=== PATIENT | female | born 1970 | race Hispanic/Latino ===

== ENCOUNTER 2022-10-28 22:37 | Inpatient (IN) | payer BC, SELFPAY ==
[~2022-10-28 22:37] MED LIST: Iopamidol-370 76% 500 ML 1 ML ONE
[2022-10-28] MEDS ORDERED: Ondansetron PF 4 MG/2 ML Vial ONE (23:07)
[2022-10-28] MEDS ORDERED: Morphine 4 MG/ML VIAL ONE (23:07)
[2022-10-28 23:38] LABS: #Basophils 0.1 thou/uL (0.0-0.2); #Eosinphils 0.1 thou/uL (0.0-0.7); #Lymphocytes 2.6 thou/uL (1.20-3.40); #Monocytes 0.7 thou/uL (0.11-0.59); #Neutrophils 5.1 thou/uL (1.40-6.50); %Basophils 0.9 % (0.0-1.0); %Eosinophils 1.5 % (0.0-10.0); %Neutrophils 59.7 % (42.0-75.0); Hemoglobin 12.1 g/dL (12.0-16.0); Mean Corpuscular HGB CONC 32.1 g/dL (32.0-36.0); Mean Corpuscular Hemoglobin 26.1 pg (27.0-31.0); Mean Corpuscular Volume 81.3 fl (78.0-98.0); Platelet Count 282 10x3/uL (130-400); RBC Distribution Width 16.9 % (11.5-14.5); Red Blood Cell (RBC) Count 4.65 mill/uL (4.20-5.40); White Blood Cell (WBC) Count 8.6 10x3/uL (4.8-10.8)
[2022-10-28 23:58] LABS: ALT (SGPT) 16 U/L (8-55); AST (SGOT) 19 U/L (5-34); Albumin 3.9 g/dL (3.5-5.0); Alkaline Phosphatase 138 U/L (40-110); Anion Gap 13 mmol/L (10-20); BUN (Urea Nitrogen) 16 mg/dL (9.8-20.1); Bilirubin, Total 0.2 mg/dL (0.2-1.2); CK (CPK) 104 U/L (29-168); Calc. Creatinine Clearance 0 mL/min (70-130); Calcium 9.1 mg/dL (7.8-10.44); Carbon Dioxide 28 mmol/L (22-29); Chloride 104 mmol/L (98-107); Estimated GFR 105; Globulin 2.9 g/dL (2.4-3.5); Glucose 123 mg/dL (70-105); Potassium 3.5 mmol/L (3.5-5.1); Protein, Total 6.8 g/dL (6.0-8.3); Sodium 141 mmol/L (136-145)
[2022-10-29 00:23] LABS: Bacteria/HPF 2+ HPF (None Seen); Bilirubin Negative (Negative); Blood, Urine Negative (Negative); Clarity Clear (Clear); Glucose, Urine (Dipstick) Normal (Negative); Ketone, Urine Negative (Negative); Leukocyte 500 Leu/uL (Negative); Nitrite Negative (Negative); Protein, Urine (Dipstick) Negative (Neg-Trace); RBC/HPF 0-3 HPF (0-3); Specific Gravity, Urine 1.015 (1.002-1.036); Urobilinogen Normal mg/dL (Less than 2); WBC/HPF 21-50 HPF (0-3); pH, Urine 7.5 (5.0-9.0)
[2022-10-29] MEDS ORDERED: cefTRIAXone\\ROCEPHIN 1 GM VIAL ONE (00:32)
[2022-10-29] MEDS ORDERED: Acetaminophen 325 MG TAB PO PRN (01:40)
[2022-10-29] MEDS ORDERED: Ondansetron PF 4 MG/2 ML Vial IVP PRN (01:40)
[2022-10-29] MEDS ORDERED: HYDROcodone/Acetaminophen 7.5/325 mg Tablet PO PRN (02:48)
[2022-10-29 03:08] VITALS: BMI 35.0
[2022-10-29 05:14] LABS: SARS-CoV-2 NAA Rapid Test Not Detected (NotDetected)
[2022-10-29] MEDS: Levothyroxine Sodium 50 MCG TAB PO SCH (05:57)
[2022-10-29 06:20] LABS: #Eosinphils 0.1 thou/uL (0.0-0.7); #Lymphocytes 2.9 thou/uL (1.20-3.40); #Monocytes 0.7 thou/uL (0.11-0.59); #Neutrophils 5.1 thou/uL (1.40-6.50); %Basophils 0.4 % (0.0-1.0); %Eosinophils 1.3 % (0.0-10.0); %Lymphocytes 32.8 % (21.0-51.0); %Monocytes 7.6 % (0.0-10.0); Hemoglobin 12.3 g/dL (12.0-16.0); Mean Corpuscular HGB CONC 31.3 g/dL (32.0-36.0); Mean Corpuscular Hemoglobin 25.7 pg (27.0-31.0); Mean Corpuscular Volume 82.1 fl (78.0-98.0); Mean Platelet Volume 8.6 fL (7.4-10.4); Platelet Count 306 10x3/uL (130-400); White Blood Cell (WBC) Count 8.8 10x3/uL (4.8-10.8)
[2022-10-29 06:40] LABS: Anion Gap 10 mmol/L (10-20); BUN (Urea Nitrogen) 12 mg/dL (9.8-20.1); Calc. Creatinine Clearance 154 mL/min (70-130); Calcium 8.6 mg/dL (7.8-10.44); Carbon Dioxide 27 mmol/L (22-29); Chloride 105 mmol/L (98-107); Estimated GFR 107; Glucose 96 mg/dL (70-105); Potassium 3.9 mmol/L (3.5-5.1); Sodium 138 mmol/L (136-145)
[2022-10-29] MEDS: HYDROcodone/Acetaminophen 5/325 mg Tablet PO PRN ×2 (08:38→20:17)
[2022-10-29] MEDS ORDERED: FLU VACC QS2022-23(6MOS UP)/PF 60 MCG/0.5 ML SYRINGE IM ONE (09:00)
[2022-10-29] MEDS ORDERED: Polyethylene Glycol 3350 17 GM Packet PO PRN (17:31)
[2022-10-29] MEDS: Senokot S 8.6-50 MG TAB PO SCH (20:13)
[2022-10-29] MEDS: Apixaban 5 MG TAB PO SCH (20:13)
[2022-10-30] MEDS ORDERED: cefTRIAXone\\ROCEPHIN 1 GM in Sodium Chloride 0.9% 100 ML IVPB SCH (01:00)
[2022-10-30] MEDS: Levothyroxine Sodium 50 MCG TAB PO SCH (05:12)
[2022-10-30 06:27] LABS: #Basophils 0.1 thou/uL (0.0-0.2); #Lymphocytes 2.3 thou/uL (1.20-3.40); #Monocytes 1.1 thou/uL (0.11-0.59); %Basophils 0.5 % (0.0-1.0); %Eosinophils 0.4 % (0.0-10.0); %Lymphocytes 18.2 % (21.0-51.0); %Monocytes 8.7 % (0.0-10.0); %Neutrophils 72.2 % (42.0-75.0); Hemoglobin 13.2 g/dL (12.0-16.0); Mean Corpuscular HGB CONC 31.5 g/dL (32.0-36.0); Mean Corpuscular Hemoglobin 25.5 pg (27.0-31.0); Mean Corpuscular Volume 81.1 fl (78.0-98.0); Mean Platelet Volume 9.1 fL (7.4-10.4); Platelet Count 297 10x3/uL (130-400); RBC Distribution Width 16.7 % (11.5-14.5); Red Blood Cell (RBC) Count 5.15 mill/uL (4.20-5.40); White Blood Cell (WBC) Count 12.5 10x3/uL (4.8-10.8)
[2022-10-30 06:48] LABS: Anion Gap 13 mmol/L (10-20); BUN (Urea Nitrogen) 11 mg/dL (9.8-20.1); Calc. Creatinine Clearance 157 mL/min (70-130); Calcium 9.3 mg/dL (7.8-10.44); Carbon Dioxide 27 mmol/L (22-29); Chloride 97 mmol/L (98-107); Estimated GFR 107; Glucose 108 mg/dL (70-105); Potassium 3.6 mmol/L (3.5-5.1); Sodium 133 mmol/L (136-145)
[2022-10-30] MEDS ORDERED: Iopamidol-370 76% 500 ML 1 ML ONE (08:58)
[2022-10-30] MEDS: Apixaban 5 MG TAB PO SCH ×2 (09:05→20:41)
[2022-10-30] MEDS: Senokot S 8.6-50 MG TAB PO SCH ×2 (09:05→20:41)
[2022-10-30] MEDS: HYDROcodone/Acetaminophen 5/325 mg Tablet PO PRN ×2 (09:08→18:53)
[2022-10-30] MEDS ORDERED: cefTRIAXone\\ROCEPHIN 2 GM in Sodium Chloride 0.9% 100 ML IVPB SCH (18:00)
[2022-10-30] MEDS: Saccharomyces boulardii 250 MG CAP PO SCH (20:41)
[2022-10-31] MEDS: Levothyroxine Sodium 50 MCG TAB PO SCH (04:14)
[2022-10-31] MEDS: HYDROcodone/Acetaminophen 5/325 mg Tablet PO PRN (04:14)
[2022-10-31 06:12] LABS: #Basophils 0.1 thou/uL (0.0-0.2); #Eosinphils 0.1 thou/uL (0.0-0.7); #Lymphocytes 2.4 thou/uL (1.20-3.40); #Monocytes 1.1 thou/uL (0.11-0.59); #Neutrophils 7.8 thou/uL (1.40-6.50); %Basophils 0.4 % (0.0-1.0); %Eosinophils 0.5 % (0.0-10.0); %Lymphocytes 20.9 % (21.0-51.0); %Monocytes 9.9 % (0.0-10.0); %Neutrophils 68.3 % (42.0-75.0); Hemoglobin 12.6 g/dL (12.0-16.0); Mean Corpuscular HGB CONC 31.3 g/dL (32.0-36.0); Mean Corpuscular Hemoglobin 25.6 pg (27.0-31.0); Mean Corpuscular Volume 81.9 fl (78.0-98.0); Mean Platelet Volume 8.7 fL (7.4-10.4); Platelet Count 288 10x3/uL (130-400); RBC Distribution Width 16.6 % (11.5-14.5); White Blood Cell (WBC) Count 11.5 10x3/uL (4.8-10.8)
[2022-10-31 06:14] LABS: Anion Gap 13 mmol/L (10-20); BUN (Urea Nitrogen) 12 mg/dL (9.8-20.1); Calc. Creatinine Clearance 154 mL/min (70-130); Calcium 9.1 mg/dL (7.8-10.44); Carbon Dioxide 25 mmol/L (22-29); Chloride 100 mmol/L (98-107); Estimated GFR 107; Glucose 106 mg/dL (70-105); Potassium 3.8 mmol/L (3.5-5.1); Sodium 134 mmol/L (136-145)
[2022-10-31] MEDS: Senokot S 8.6-50 MG TAB PO SCH ×2 (09:10→20:16)
[2022-10-31] MEDS: Apixaban 5 MG TAB PO SCH ×2 (09:10→20:16)
[2022-10-31] MEDS: Saccharomyces boulardii 250 MG CAP PO SCH (20:16)
[2022-11-01] MEDS: Levothyroxine Sodium 50 MCG TAB PO SCH (05:31)
[2022-11-01 06:56] LABS: #Eosinphils 0.1 thou/uL (0.0-0.7); #Lymphocytes 2.6 thou/uL (1.20-3.40); %Basophils 0.3 % (0.0-1.0); %Eosinophils 0.9 % (0.0-10.0); %Lymphocytes 26.7 % (21.0-51.0); %Monocytes 10.5 % (0.0-10.0); %Neutrophils 61.6 % (42.0-75.0); Hemoglobin 12.5 g/dL (12.0-16.0); Mean Corpuscular HGB CONC 31.9 g/dL (32.0-36.0); Mean Corpuscular Hemoglobin 26.1 pg (27.0-31.0); Mean Corpuscular Volume 81.9 fl (78.0-98.0); Mean Platelet Volume 8.9 fL (7.4-10.4); Platelet Count 276 10x3/uL (130-400); RBC Distribution Width 16.6 % (11.5-14.5); Red Blood Cell (RBC) Count 4.78 mill/uL (4.20-5.40); White Blood Cell (WBC) Count 9.7 10x3/uL (4.8-10.8)
[2022-11-01 07:13] LABS: Anion Gap 14 mmol/L (10-20); BUN (Urea Nitrogen) 12 mg/dL (9.8-20.1); CRP (Inflammatory) 15.58 mg/dL (= or < 0.5); Calc. Creatinine Clearance 162 mL/min (70-130); Calcium 9.1 mg/dL (7.8-10.44); Carbon Dioxide 25 mmol/L (22-29); Chloride 100 mmol/L (98-107); Estimated GFR 108; Glucose 96 mg/dL (70-105); Magnesium 2.1 mg/dL (1.6-2.6); Potassium 3.7 mmol/L (3.5-5.1); Sodium 135 mmol/L (136-145)
[2022-11-01] MEDS: Apixaban 5 MG TAB PO SCH (08:30)
[2022-11-01] MEDS: Senokot S 8.6-50 MG TAB PO SCH (08:30)
[2022-11-01 11:57] VITALS: TEMP 97.9
[2022-11-01 16:00] VITALS: BP 119/83
== END 2022-11-01 17:19 | disposition home or self-care (01) | DRG 872 ==
LOC: ERS 22:37 → SURG A 10-29 01:40
PROVIDERS: ADMIT Internal Medicine; ATTEND Internal Medicine
DX: A41.9 Sepsis, unspecified organism (principal); N12 Tubulo-interstitial nephritis, not specified as acute or chronic; N28.0 Ischemia and infarction of kidney; E87.1 Hypo-osmolality and hyponatremia; Z20.822 Contact with and (suspected) exposure to COVID-19; Z23 Encounter for immunization; I48.91 Unspecified atrial fibrillation; E03.9 Hypothyroidism, unspecified; I10 Essential (primary) hypertension; E66.9 Obesity, unspecified; Z68.35 Body mass index [BMI] 35.0-35.9, adult; Z79.899 Other long term (current) drug therapy; Z79.01 Long term (current) use of anticoagulants; Z79.890 Hormone replacement therapy
CPT/HCPCS: 36415; 74174; 74177; 80048; 80053; 81003; 81015; 82550; 83690; 83735; 84484; 85025; 86140; 87086; 90471; 90686; 93005; 96365; 96375; G0008; J0696; J1650; J1956; J2270; J2405; J3490; Q9967; U0002

== ENCOUNTER 2024-02-20 11:42 | Emergency (ER) | payer BC ==
[2024-02-20] MEDS ORDERED: predniSONE 20 MG TAB ONE (13:29)
[2024-02-20] MEDS ORDERED: Acetaminophen 500 MG TAB ONE (13:29)
== END 2024-02-20 13:39 | disposition home or self-care (01) ==
LOC: ERS 11:42
DX: M25.562 Pain in left knee (principal); I48.91 Unspecified atrial fibrillation; I10 Essential (primary) hypertension; E03.9 Hypothyroidism, unspecified; Z79.01 Long term (current) use of anticoagulants; Z79.899 Other long term (current) drug therapy
CPT/HCPCS: J7512

== ENCOUNTER 2024-02-28 09:53 | Emergency (ER) | payer BC | END 2024-02-28 15:25 | disposition home or self-care (01) | LOC: ERS 09:53 | DX: R10.11 Right upper quadrant pain (principal); R11.0 Nausea; E03.9 Hypothyroidism, unspecified; I48.91 Unspecified atrial fibrillation; I10 Essential (primary) hypertension; Z79.01 Long term (current) use of anticoagulants; Z79.890 Hormone replacement therapy; Z79.899 Other long term (current) drug therapy | CPT/HCPCS: 74176; 76705; 80053; 81001; 83690; 85025; 96372; J2270; J2405 ==

== ENCOUNTER 2024-06-28 09:12 | Emergency (ER) | payer BC ==
[2024-06-28] MEDS ORDERED: Ketorolac Tromethamine 30 MG (1 mL) VIAL ONE (10:09)
[2024-06-28 10:13] LABS: #Basophils 0.03 10x3/uL (0.0-0.2); %Basophils 0.4 % (0.0-1.0); %Eosinophils 1.3 % (0.0-10.0); %Lymphocytes 36.4 % (21.0-51.0); %Monocytes 7.1 % (0.0-10.0); %Neutrophils 54.5 % (42.0-75.0); Hematocrit 41.2 % (36.0-47.0); Hemoglobin 13.4 g/dL (12.0-16.0); Mean Corpuscular HGB CONC 32.5 g/dL (32.0-36.0); Mean Corpuscular Hemoglobin 28.3 pg (27.0-31.0); Mean Corpuscular Volume 86.9 fL (78.0-98.0); Mean Platelet Volume 10.3 fL (7.4-10.4); Platelet Count 307 10x3/uL (130-400); RBC Distribution Width 12.5 % (11.5-14.5); Red Blood Cell (RBC) Count 4.74 mill/uL (4.20-5.40)
[2024-06-28 10:33] LABS: ALT (SGPT) 13 U/L (8-55); AST (SGOT) 16 U/L (5-34); Albumin 3.6 g/dL (3.5-5.0); Alkaline Phosphatase 139 U/L (40-110); Anion Gap 14 mmol/L (10-20); BUN (Urea Nitrogen) 16 mg/dL (9.8-20.1); Bilirubin, Total 0.4 mg/dL (0.2-1.2); Calc. Creatinine Clearance 0 mL/min (70-130); Carbon Dioxide 25 mmol/L (22-29); Chloride 104 mmol/L (98-107); Estimated GFR 104; Globulin 3.4 g/dL (2.4-3.5); Glucose 117 mg/dL (70-105); Lipase 23 U/L (8-78); Potassium 3.8 mmol/L (3.5-5.1); Sodium 139 mmol/L (136-145)
[2024-06-28 10:38] LABS: Troponin I 0.013 ng/mL (< 0.028)
== END 2024-06-28 13:00 | disposition home or self-care (01) ==
LOC: ERS 09:12
DX: R07.89 Other chest pain (principal); I10 Essential (primary) hypertension; E03.9 Hypothyroidism, unspecified; I48.91 Unspecified atrial fibrillation; Z79.01 Long term (current) use of anticoagulants; Z55.6 Problems related to health literacy
CPT/HCPCS: 36415; 71045; 80053; 83690; 84484; 85025; 85379; 93005; 96374; J1885

== ENCOUNTER 2025-08-01 18:58 | Inpatient (IN) | payer BC ==
[~2025-08-01 18:58] MED LIST changes: +Iopamidol 370 76% 100 ML VIAL ONE; -Iopamidol-370 76% 500 ML 1 ML ONE
[2025-08-01 19:29] LABS: #Basophils 0.04 10x3/uL (0.0-0.2); #Eosinophils 0.18 10x3/uL (0.0-0.7); #Monocytes 0.76 10x3/uL (0.11-0.59); #Neutrophils 5.72 10x3/uL (1.40-6.50); %Basophils 0.4 % (0.0-1.0); %Eosinophils 1.8 % (0.0-10.0); %Lymphocytes 32.7 % (21.0-51.0); %Monocytes 7.6 % (0.0-10.0); %Neutrophils 57.0 % (42.0-75.0); Hematocrit 42.3 % (36.0-47.0); Hemoglobin 13.8 g/dL (12.0-16.0); Mean Corpuscular Hemoglobin 27.8 pg (27.0-31.0); Mean Corpuscular Volume 85.3 fL (78.0-98.0); Platelet Count 311 10x3/uL (130-400); Red Blood Cell (RBC) Count 4.96 mill/uL (4.20-5.40); White Blood Cell (WBC) Count 10.03 10x3/uL (4.8-10.8)
[2025-08-01 19:44] LABS: INR-International Normal Ratio 1.0; Prothrombin Time 13.2 sec (12.0-14.7)
[2025-08-01 19:45] LABS: PTT 29.1 sec (22.9-36.1)
[2025-08-01 19:52] LABS: ALT (SGPT) 15 U/L (Less than 34); AST (SGOT) 24 U/L (11-34); Albumin 3.9 g/dL (3.1-4.5); Alkaline Phosphatase 166 U/L (40-110); Anion Gap 16 mmol/L (10-20); BUN (Urea Nitrogen) 20 mg/dL (9.8-20.1); Bilirubin, Total 0.1 mg/dL (0.3-1.2); Calc. Creatinine Clearance 0 mL/min (70-130); Calcium 9.2 mg/dL (7.8-10.44); Carbon Dioxide 25 mmol/L (22-29); Chloride 107 mmol/L (98-107); Globulin 3.4 g/dL (2.4-3.5); Glucose 152 mg/dL (70-105); Potassium 4.5 mmol/L (3.5-5.1); Sodium 143 mmol/L (136-145)
[2025-08-01] MEDS ORDERED: Ondansetron PF 4 MG/2 ML Vial ONE (20:18)
[2025-08-01] MEDS ORDERED: Calcium Carbonate 500 MG ChewTAB PO PRN (21:47)
[2025-08-01 23:11] VITALS: BMI 47.9
[2025-08-02] MEDS: Acetaminophen 325 MG TAB PO PRN (04:12)
[2025-08-02 05:18] LABS: #Basophils 0.03 10x3/uL (0.0-0.2); #Eosinophils 0.15 10x3/uL (0.0-0.7); #Monocytes 0.64 10x3/uL (0.11-0.59); #Neutrophils 3.99 10x3/uL (1.40-6.50); %Basophils 0.4 % (0.0-1.0); %Eosinophils 2.1 % (0.0-10.0); %Lymphocytes 33.6 % (21.0-51.0); %Monocytes 8.8 % (0.0-10.0); %Neutrophils 54.8 % (42.0-75.0); Hematocrit 40.1 % (36.0-47.0); Hemoglobin 12.4 g/dL (12.0-16.0); Mean Corpuscular Hemoglobin 26.9 pg (27.0-31.0); Mean Corpuscular Volume 87.0 fL (78.0-98.0); Platelet Count 293 10x3/uL (130-400); Red Blood Cell (RBC) Count 4.61 mill/uL (4.20-5.40); White Blood Cell (WBC) Count 7.27 10x3/uL (4.8-10.8)
[2025-08-02 06:43] LABS: Anion Gap 14 mmol/L (10-20); BUN (Urea Nitrogen) 15 mg/dL (9.8-20.1); Carbon Dioxide 27 mmol/L (22-29); Chloride 105 mmol/L (98-107); Potassium 4.2 mmol/L (3.5-5.1); Sodium 142 mmol/L (136-145)
[2025-08-02 06:44] LABS: Calc. Creatinine Clearance 221 mL/min (70-130); Calcium 8.8 mg/dL (7.6-10.4); Cardiac Risk 3.6 (Less than 4.5); Cholesterol 153 mg/dL (< 200 Desired); Glucose 94 mg/dL (70-105); HDL Cholesterol 43 mg/dL (>60 Neg Risk); LDL Cholesterol, Calculated 91 mg/dL; Triglycerides 94 mg/dL (Less than 150)
[2025-08-02] MEDS: Metoprolol Succinate XL 50 MG ER.TAB PO SCH (08:26)
[2025-08-02] MEDS: Apixaban 5 MG TAB PO SCH (08:27)
[2025-08-02] MEDS: Guaifenesin DM 100-10/5 ML UDCUP PO PRN (09:54)
[2025-08-02] MEDS: cloNIDine 0.1 MG TAB PO PRN (09:55)
[2025-08-02] MEDS: Fioricet 325/50/40 mg Tablet PO PRN (17:19)
[2025-08-03] MEDS: Aspirin 81 mg Enteric Coated Tablet PO SCH (09:53)
[2025-08-03] MEDS: Losartan 25 MG TAB PO SCH (09:53)
[2025-08-04] MEDS: Losartan 25 MG TAB PO SCH ×2 (09:56→13:06)
[2025-08-04] MEDS: Aspirin 81 mg Enteric Coated Tablet PO SCH (09:56)
[2025-08-04 11:45] VITALS: TEMP 98.2
[2025-08-04] MEDS: Ondansetron PF 4 MG/2 ML Vial IVP PRN (13:12)
[2025-08-04 16:50] VITALS: BP 143/83
[2025-08-05] MEDS ORDERED: Losartan 25 MG TAB PO SCH (09:00)
== END 2025-08-04 16:40 | disposition home or self-care (01) | DRG 304 ==
LOC: ERS 18:58 → 2NO 21:24 → OBS 08-02 08:01 → OBSVTOIN 08-02 17:00
PROVIDERS: ADMIT Internal Medicine; ATTEND Internal Medicine
DX: I16.0 Hypertensive urgency (principal); I63.89 Other cerebral infarction; I48.19 Other persistent atrial fibrillation; I67.4 Hypertensive encephalopathy; Z68.42 Body mass index [BMI] 45.0-49.9, adult; R47.01 Aphasia; Z79.01 Long term (current) use of anticoagulants; I10 Essential (primary) hypertension; E03.9 Hypothyroidism, unspecified; Z98.891 History of uterine scar from previous surgery; Z79.899 Other long term (current) drug therapy; Z79.890 Hormone replacement therapy; E66.9 Obesity, unspecified; R47.81 Slurred speech; R29.701 NIHSS score 1
CPT/HCPCS: 36415; 36416; 70450; 70496; 70498; 70551; 71045; 80048; 80053; 80061; 83880; 84484; 85025; 85610; 85730; 93005; 93306; 94760; 96374; 96375; G0378; J2272; J2405; Q9967